=== PATIENT | female | born 2000 | race Hispanic/Latino ===

== ENCOUNTER 2024-12-11 13:32 | Day surgery (SDC) | payer OTHER ==
[2024-12-11 14:34] LABS: Fetal Membranes Rupture No Membranes Rupture (No Rupture)
[2024-12-11 14:41] VITALS: BMI 30.2
[2024-12-11] MEDS ORDERED: hydrALAZINE 20 MG/ML VIAL SLOW IVP PRN (15:34)
== END 2024-12-11 16:51 | disposition home or self-care (01) ==
LOC: CSHLD/OP 13:32
PROVIDERS: ATTEND Family Medicine
DX: O47.1 False labor at or after 37 completed weeks of gestation (principal); Z03.71 Encounter for suspected problem with amniotic cavity and membrane ruled out; O99.313 Alcohol use complicating pregnancy, third trimester; O99.323 Drug use complicating pregnancy, third trimester; F12.90 Cannabis use, unspecified, uncomplicated; F10.90 Alcohol use, unspecified, uncomplicated; O99.013 Anemia complicating pregnancy, third trimester; A59.9 Trichomoniasis, unspecified; O98.813 Other maternal infectious and parasitic diseases complicating pregnancy, third trimester; A56.02 Chlamydial vulvovaginitis; Z79.82 Long term (current) use of aspirin; Z79.899 Other long term (current) drug therapy; Z3A.40 40 weeks gestation of pregnancy
CPT/HCPCS: 84112; 99285

== ENCOUNTER 2024-12-12 08:46 | Inpatient (IN) | payer OTHER ==
[2024-12-12 09:07] VITALS: BMI 28.3
[2024-12-12] MEDS ORDERED: hydrALAZINE 20 MG/ML VIAL SLOW IVP PRN ×2 (09:34→10:30)
[2024-12-12] MEDS ORDERED: Oxytocin 30 units/NS 500 ML 500 ML IV SCH (10:30)
[2024-12-12] MEDS ORDERED: Ibuprofen 800 MG TAB PO PRN (10:30)
[2024-12-12] MEDS ORDERED: Lidocaine 1% (PF) 30 ML VIAL SC PRN (10:30)
[2024-12-12] MEDS ORDERED: Promethazine HCl 25 MG/ML VIAL IM PRN ×3 (10:30→21:38)
[2024-12-12] MEDS ORDERED: Acetaminophen 500 MG TAB PO PRN (10:30)
[2024-12-12] MEDS ORDERED: Ondansetron PF 4 MG/2 ML Vial IVP PRN ×5 (10:30→23:24)
[2024-12-12] MEDS: Penicillin G Potassium 5 MILL.UNITS in Sodium Chloride 0.9% 100 ML IVPB SCH (11:11)
[2024-12-12 11:16] LABS: Hematocrit 37.1 % (34.9-44.5); Hemoglobin 12.2 g/dL (12.0-15.5); Mean Corpuscular HGB CONC 32.9 g/dL (32.0-36.0); Mean Corpuscular Hemoglobin 29.9 pg (27.0-33.0); Mean Corpuscular Volume 90.9 fL (81.6-98.3); Mean Platelet Volume 11.9 fL (7.4-10.4); Platelet Count 218 10x3/uL (150-450); RBC Distribution Width 13.6 % (11.5-14.5); Red Blood Cell (RBC) Count 4.08 10x6/uL (3.90-5.03); White Blood Cell (WBC) Count 11.59 10x3/uL (3.5-10.5)
[2024-12-12 12:00] LABS: Syphilis Antibody Nonreactive (Nonreactive); Syphilis Antibody Index 0.05 S/CO (<1.00 Non-Reactive)
[2024-12-12 12:08] LABS: HBsAg Index 0.19 S/CO (0-0.99); Hep B Surf Ag - L&D Non-Reactive S/CO (NonReactive)
[2024-12-12] MEDS: fentaNYL 50 mcg/mL 1 mL Vial SLOW IVP PRN (12:43)
[2024-12-12] MEDS: Penicillin G 2.5 MILL.units 2.5 MILL.UNITS in Premix 1 BAG IVPB SCH (14:58)
[2024-12-12] MEDS: fentaNYL/Ropivacaine Epidural 100 ML ONE (16:56)
[2024-12-12] MEDS ORDERED: Moisturizing Cream (Eucerin) 113 GM JAR TOP PRN ×2 (17:15→21:38)
[2024-12-12] MEDS ORDERED: Communication Order-Pharmacy FS SCH ×2 (17:15→21:45)
[2024-12-12] MEDS ORDERED: Lactated Ringer's 500 ML IV PRN (17:15)
[2024-12-12] MEDS ORDERED: fentaNYL 2 mcg/Ropivacaine 0.2% Epidural 100 ML CADD EPIDURAL SCH (17:15)
[2024-12-12] MEDS ORDERED: Naloxone HCl 0.4 mg/ml Vial IVP PRN ×3 (17:15→21:38)
[2024-12-12] MEDS ORDERED: Acetaminophen 325 MG TAB PO PRN (17:15)
[2024-12-12] MEDS ORDERED: ePHEDrine Sulfate 50 MG/10 ML VIAL SLOW IVP PRN (17:15)
[2024-12-12] MEDS: Oxytocin 30 units/NS 500 ML 500 ML IV SCH (17:33)
[2024-12-12] MEDS ORDERED: Famotidine/PF 20 mg/2ml Vial SLOW IVP PRN (20:02)
[2024-12-12] MEDS ORDERED: Bicitra 30 ML UDCUP PO PRN (20:02)
[2024-12-12 20:32] LABS: Analyzer IN Cardio CS NICU; RapidComm Collect By RN
[2024-12-12 20:36] LABS: Analyzer IN Cardio CS NICU; RapidComm Collect By RN; pH (Cord, venous) 7.334 (7.250-7.350)
[2024-12-12] MEDS ORDERED: Naloxone HCl 0.4 mg/ml Vial IV PRN (21:38)
[2024-12-12] MEDS ORDERED: fentaNYL 50 mcg/mL 1 mL Vial SLOW IVP PRN (21:38)
[2024-12-12] MEDS ORDERED: Meperidine HCl/PF 25 MG (1 mL) VIAL SLOW IVP PRN (21:38)
[2024-12-12] MEDS ORDERED: Morphine 4 MG/ML VIAL SLOW IVP PRN (21:38)
[2024-12-12] MEDS: Diphenoxylate HCl/Atropine Tablet PO SCH (21:43)
[2024-12-12] MEDS ORDERED: Ketorolac Tromethamine 30 MG (1 mL) VIAL IVP SCH (21:45)
[2024-12-12] MEDS ORDERED: Misoprostol 200 MCG TAB PR PRN (23:24)
[2024-12-12] MEDS ORDERED: Bisacodyl 10 MG SUPP PR PRN (23:24)
[2024-12-13] MEDS: Azithromycin 500 MG VIAL ONE (00:37)
[2024-12-13] MEDS: CEFAZOLIN 2 GM VIAL ONE (00:37)
[2024-12-13] MEDS: Terbutaline Sulfate 1 MG/ML VIAL ONE (00:37)
[2024-12-13] MEDS: PHENYLEPHRINE-NS 100 MCG/ML 10 ML SYRINGE ONE (00:37)
[2024-12-13] MEDS: Ondansetron PF 4 MG/2 ML Vial ONE (00:37)
[2024-12-13] MEDS: Dexamethasone 10 MG/ML VIAL ONE (00:38)
[2024-12-13] MEDS: Azithromycin 500 MG in Sodium Chloride 0.9% 250 ML 250 ML IVPB SCH (00:38)
[2024-12-13] MEDS: Morphine PF 10 MG/10 ML VIAL ONE (00:38)
[2024-12-13] MEDS: Tranexamic Acid 1,000 MG/10 ML VIAL ONE (00:38)
[2024-12-13] MEDS: Dexmedetomidine 200 MCG/2 ML VIAL ONE (00:38)
[2024-12-13] MEDS: Promethazine HCl 25 MG/ML VIAL ONE (00:38)
[2024-12-13] MEDS: Oxytocin 10 UNITS/ML VIAL ONE ×3 (00:39)
[2024-12-13] MEDS: Ketorolac Tromethamine 30 MG (1 mL) VIAL IVP SCH (00:39)
[2024-12-13] MEDS: Boostrix 0.5 ML (Tdap) VIAL (>/=7 yrs of age) IM ONE (00:39)
[2024-12-13] MEDS: Docusate 100 MG CAP PO SCH ×2 (00:40→08:29)
[2024-12-13] MEDS: Ferrous Sulfate 325 MG TAB PO SCH (00:40)
[2024-12-13] MEDS: diphenhydrAMINE 50 MG/ML VIAL IVP PRN ×2 (01:08→14:03)
[2024-12-13] MEDS: Naloxone HCl 0.4 mg/ml Vial IVP PRN (02:29)
[2024-12-13 04:29] LABS: Hematocrit 31.3 % (34.9-44.5); Hemoglobin 10.5 g/dL (12.0-15.5); Mean Corpuscular HGB CONC 33.5 g/dL (32.0-36.0); Mean Corpuscular Hemoglobin 30.8 pg (27.0-33.0); Mean Corpuscular Volume 91.8 fL (81.6-98.3); Mean Platelet Volume 11.7 fL (7.4-10.4); Platelet Count 198 10x3/uL (150-450); RBC Distribution Width 13.5 % (11.5-14.5); Red Blood Cell (RBC) Count 3.41 10x6/uL (3.90-5.03); White Blood Cell (WBC) Count 21.61 10x3/uL (3.5-10.5)
[2024-12-13] MEDS: Prenatal Vitamin 1 TAB PO SCH (08:28)
[2024-12-13] MEDS ORDERED: Bupivacaine HCl 0.5%/Epinephrine 1:200,000/PF 30 ml Vial ONE (10:00)
[2024-12-13] MEDS ORDERED: Bupivacaine 0.25% HCL 30 ML VIAL ONE (10:00)
[2024-12-13] MEDS ORDERED: Lidocaine 2% MPF 10 ML AMP (For Epidural Use) ONE (10:00)
[2024-12-13] MEDS: Simethicone Chewable 80 MG TAB PO PRN (20:01)
[2024-12-13] MEDS: HYDROcodone/Acetaminophen 5/325 mg Tablet PO PRN (20:01)
[2024-12-14] MEDS: Ferrous Sulfate 325 MG TAB PO SCH (05:35)
[2024-12-14] MEDS: Ibuprofen 800 MG TAB PO PRN ×2 (05:36→13:17)
[2024-12-14] MEDS: HYDROcodone/Acetaminophen 5/325 mg Tablet PO PRN (19:17)
[2024-12-15 04:35] VITALS: TEMP 97.5
[2024-12-15 08:09] VITALS: BP 114/59
== END 2024-12-15 13:50 | disposition home or self-care (01) | DRG 788 ==
LOC: CSHLD/OP 08:46 → CSHLD 10:30 → CSHPP 12-13 00:05
PROVIDERS: ADMIT Family Medicine; ATTEND Family Medicine
PROC: 10D00Z1 Extraction of Products of Conception, Low, Open Approach (ICD-10-PCS; principal; 2024-12-12)
PROC: 10907ZC Drainage of Amniotic Fluid, Therapeutic from Products of Conception, Via Natural or Artificial Opening (ICD-10-PCS; 2024-12-12)
PROC: 3E033VJ Introduction of Other Hormone into Peripheral Vein, Percutaneous Approach (ICD-10-PCS; 2024-12-12)
DX: O76 Abnormality in fetal heart rate and rhythm complicating labor and delivery (principal); O99.02 Anemia complicating childbirth; D50.9 Iron deficiency anemia, unspecified; Z3A.40 40 weeks gestation of pregnancy; O99.824 Streptococcus B carrier state complicating childbirth; Z37.0 Single live birth; O69.81X0 Labor and delivery complicated by cord around neck, without compression, not applicable or unspecified; O64.0XX0 Obstructed labor due to incomplete rotation of fetal head, not applicable or unspecified
CPT/HCPCS: 36415; 51702; 82805; 85027; 86780; 86850; 86900; 86901; 87340; 99285; J0665; J1100; J1200; J1885; J2274; J2310; J2405; J2540; J2550; J2590; J3010